=== PATIENT | female | born 1975 | race Caucasian/White ===

== ENCOUNTER → 2017-09-27 16:12 | Outpatient (CLI) | payer OTHER, SELFPAY ==
--- NOTE | 2017-09-27 16:14 | DI.US.S_ITS ---
PROCEDURE: US ABDOMEN LIMITED INDICATIONS: INGUINAL PAIN TECHNIQUE: Real-time focused scanning was performed of the inguinal region, with image documentation. COMPARISON: None. FINDINGS: Imaging over the right inguinal canal was obtained in the supine and upright positions with and without Valsalva. There is a hypoechoic shadowing from previous scar but no new herniation is seen. IMPRESSION: No recurrent inguinal hernia Dictated by: Ashish Gonsalez M.D. on 09/27/2017 at 16:39 Approved by: Ashish Gonsalez M.D. on 09/27/2017 at 16:40
== END ==
PROVIDERS: PCP Nurse Practitioner; Visit Provider Nurse Practitioner
DX: R10.2 Pelvic and perineal pain (principal)
CPT/HCPCS: 76705

== ENCOUNTER → 2018-12-11 07:32 | Outpatient (CLI) | payer OTHER, SELFPAY ==
--- NOTE | 2018-12-11 | DI.RAD.S_ITS ---
PROCEDURE: XR CHEST 2V INDICATIONS: Ventricular premature depolarization TECHNIQUE: 2 views of the chest were acquired. COMPARISON: None. FINDINGS: Surgical changes and devices: None. Lungs and pleura: Lungs are clear. No pleural effusions or pneumothorax. Mediastinum: Mediastinal contours are normal. Heart size is normal. Bones and chest wall: No suspicious bony abnormalities. Soft tissues appear unremarkable. IMPRESSION: Normal for age, source of current cardiac symptoms is not seen. Dictated by: Jimmie Mace M.D. on 12/11/2018 at 9:57 Approved by: Jimmie Mace M.D. on 12/11/2018 at 9:57
[2018-12-11 08:34] LABS: Add Manual Diff / Slide Review NO; Basophils Absolute Auto 0 /uL (0-100); Basophils Percent Auto 0.8 % (0-2); Eosinophils Absolute Auto 100 /uL (0-450); Eosinophils Percent Auto 1.2 % (2-4); Hematocrit 37.8 % (36-46); Hemoglobin 12.7 g/dL (12.0-16.0); Lymphocytes Absolute Auto 1200 /uL (1100-4500); Lymphocytes Percent Auto 22.2 % (25-40); Mean Corpuscular HGB Conc 33.6 % (30-36); Mean Corpuscular Hemoglobin 30.5 PG (26-34); Mean Corpuscular Volume 90.7 fL (80-100); Monocytes Absolute Auto 500 /uL (0-900); Monocytes Percent Auto 8.4 % (3-14); Neutrophils Absolute Auto 3800 /uL (1500-7000); Neutrophils Percent Auto 67.4 % (50-75); Platelet Count 217 X10^3/uL (150-400); Red Blood Cell Count 4.16 X10^6/uL (4.0-5.2); Red Cell Distribution Width 13.6 % (11.6-14.8); White Blood Cell Count 5.6 X10^3/uL (4.5-11.0)
[2018-12-11 08:54] LABS: Alanine Aminotransferase 24 IU/L (9-52); Albumin 4.3 g/dL (3.5-5.0); Albumin Globulin Ratio 1.3 (1.0-2.8); Alkaline Phosphatase 53 U/L (38-126); Aspartate Aminotransferase 31 IU/L (14-36); BUN Creatinine Ratio 23.3 (6-22); Bilirubin Total 0.5 mg/dL (0.2-1.3); Blood Urea Nitrogen 14 mg/dL (7-17); Calcium 9.1 mg/dL (8.4-10.2); Carbon Dioxide 28 mmol/L (22-32); Chloride 102 mmol/L (98-107); Cholesterol 185 mg/dL (140-199); Estimated Glomerular Filt Rate > 60.0 mL/min (>60); Globulin 3.3 g/dL (1.7-4.1); Glucose 91 mg/dL (70-100); HDL Cholesterol 59 mg/dL (40-60); HEMOLYSIS < 15 (0-50); LDL Cholesterol Calculated 109 mg/dL (<100); Potassium 4.6 mmol/L (3.4-5.1); Sodium 139 mmol/L (137-145); Total Protein 7.6 g/dL (6.3-8.2); Triglycerides 86 mg/dL (35-150)
[2018-12-11 09:06] LABS: LDL Cholesterol Direct 116 mg/dL (<100)
[2018-12-11 09:29] LABS: Thyroid Stimulating Hormone 0.84 uIU/mL (0.47-4.68)
== END ==
PROVIDERS: PCP Nurse Practitioner; Visit Provider Nurse Practitioner
DX: Z00.01 Encounter for general adult medical examination with abnormal findings (principal); I49.3 Ventricular premature depolarization; Q82.5 Congenital non-neoplastic nevus; F40.243 Fear of flying
CPT/HCPCS: 36415; 71046; 80053; 80061; 83721; 84443; 85025

== ENCOUNTER → 2021-02-02 09:55 | Outpatient (CLI) | payer OTHER, SELFPAY ==
--- NOTE | 2021-02-02 | DI.US.S_ITS ---
PROCEDURE: US ABDOMEN LIMITED INDICATIONS: RLQ PAIN TECHNIQUE: Real-time focused scanning was performed of the abdomen, with image documentation. COMPARISON: [facility], ABDOMEN LIMITED, 11/27/2009, 15:55. [facility], ABDOMEN LIMITED, 09/27/2017, 16:23. FINDINGS: Scanning is performed at the area of clinical concern involving the right groin. At this site, no findings of hernia can be seen, including with Valsalva maneuver. There is a small ovoid hypoechoic focus that measures 8 x 7 x 3 mm, adjacent to the vascular bundle. IMPRESSION: Negative for hernia. Apparent normal lymph node seen within the region of clinical concern. Dictated by: Francesco Begum M.D. on 02/02/2021 at 9:50 Approved by: Francesco Begum M.D. on 02/02/2021 at 9:52
== END ==
PROVIDERS: PCP Naturopath; Referring Provider Naturopath; Visit Provider Naturopath
DX: R10.31 Right lower quadrant pain (principal)
CPT/HCPCS: 76705

== ENCOUNTER → 2021-04-01 11:24 | Outpatient (CLI) | payer OTHER, SELFPAY ==
--- NOTE | 2021-04-01 | DI.RAD.S_ITS ---
PROCEDURE: XR RIBS LT MIN 3V W CXR1V INDICATIONS: CONTUSION OF UNSPECIFIED FRONTWALL OF THORAX TECHNIQUE: 4 views of the left ribs were acquired, along with a single view chest. COMPARISON: December 11, 2018. FINDINGS: Surgical changes and devices: None. Bones and chest wall: No fractures or dislocations. No suspicious bony lesions. Overlying soft tissues appear unremarkable. Lungs and pleura: The lungs appear hyperexpanded. No pleural effusions or pneumothorax. Lungs appear clear. Mediastinum: Mediastinal contours appear normal. Heart size is normal. IMPRESSION: No significant abnormality. Dictated by: Apolinar Singh M.D. on 04/01/2021 at 12:43 Approved by: Apolinar Singh M.D. on 04/01/2021 at 12:48
== END ==
PROVIDERS: PCP Naturopath; Referring Provider Nurse Practitioner Family; Visit Provider Nurse Practitioner Family
DX: S20.219A Contusion of unspecified front wall of thorax, initial encounter (principal); X58.XXXA Exposure to other specified factors, initial encounter
CPT/HCPCS: 71101

== ENCOUNTER → 2021-04-20 14:12 | Outpatient (CLI) | payer OTHER, SELFPAY ==
--- NOTE | 2021-04-20 | DI.MRI.S_ITS ---
PROCEDURE: MR PELVIS WO CON INDICATIONS: Right lower quadrant pain TECHNIQUE: Noncontrast coronal T1 and STIR, axial T1 and T2 with fat saturation, sagittal T1 and STIR obtained through the pelvis. COMPARISON: [facility], , ABDOMEN LIMITED, 02/02/2021, 10:17. FINDINGS: Image quality: Evaluation slightly limited by motion artifact. Soft tissues: There is a small amount of free fluid in the pelvis which appears within physiologic limits. Uterus and ovaries appear within normal size limits. There is a thin walled cyst in the left ovary measuring up to 2.2 cm consistent with a follicular cyst. The endometrium and junctional zone appear normal in thickness. Visualized bowel loops are normal in caliber. The appendix is not discretely well visualized in the absence of intravenous contrast. However, no definite abnormally distended and thick-walled appendix identified. Visualized muscles demonstrate normal bulk and internal signal. No joint effusions. Bones: Bone marrow of the pelvic ring, sacrum, and proximal femurs demonstrates normal overall signal. No bone contusions or fractures identified. The visualized lower lumbar spine demonstrates mild degenerative disc disease at L4-5 with a small posterior annular fissure. There is associated mild spinal canal narrowing. IMPRESSION: 1. Limited evaluation of the appendix in the absence of intravenous contrast. No definite abnormal appendix identified to suggest acute appendicitis. If there is clinical suspicion for appendicitis, further evaluation is recommended with CT. 2. Small amount of free fluid in the pelvis appears within physiologic limits. 3. Ovaries appear within normal size limits with a probable follicular cyst in the left ovary. No definite morphologic evidence of ovarian torsion but if there is clinical suspicion for torsion further evaluation may be obtained with ultrasound. Dictated by: Sean Steiner M.D. on 04/21/2021 at 1:12 Transcribed by: YOANA on 04/21/2021 at 1:13 Approved by: Sean Steiner M.D. on 04/21/2021 at 1:27
== END ==
PROVIDERS: PCP Naturopath; Referring Provider Naturopath; Visit Provider Naturopath
DX: R10.31 Right lower quadrant pain (principal)
CPT/HCPCS: 72195

== ENCOUNTER 2022-06-15 07:44 | Day surgery (SDC) | payer OTHER, SELFPAY ==
[2022-06-15 07:55] VITALS: BP 102/64; PULSE 67; RESP 18; TEMP 36.4; O2SAT 100; BMI 20.9
[2022-06-15] MEDS: LACTATED RINGERS 1,000 ML 200 ML IV (08:14)
--- NOTE | 2022-06-15 08:41 | PM.HP.1 ---
History of Present Illness History of Present Illness Date Patient Seen: 06/15/22 Time Patient Seen: 08:41 Chief complaint: Screening Colonoscopy Narrative: The patient presents for colorectal screening. They have never had any previous examination for such. No personal or family history of colon cancer. On further history denies any recent gastrointestinal symptoms. No nausea, vomiting, abdominal pain, loss of appetite, unexplained weight loss, change in bowel habits, or blood per rectum. Patient History Surgical History History of cardiac radiofrequency ablation (RFA) Family & Social History Family History Father Age: 78 Heart disease Social History: household members spouse Tobacco & Substance use: Smoking Status Never smoker alcohol intake current alcohol intake frequency 0-2 drinks per day Substance Use Type does not use Meds Home Medications and Allergies Home Medications Medication Instructions Recorded Confirmed Type EPINEPHRINE (#EPI-PEN) 1 mg MR SEE INSTRUCTIONS ##1 02/24/12 Rx peg 3350-electrolytes 236 240 ml PO Q10M #4,000 mL 06/09/22 Rx gram-22.74 gram-6.74 gram-5.86 gram solution (Golytely) magnesium tab PO 3XW 06/15/22 History Allergies Allergy/AdvReac Type Severity Reaction Status Date / Time No Known Drug Allergies Allergy Verified 06/15/22 07:54 Exam Vital Signs (past 8 hours): - 06/15/22 07:55 Temperature 97.5 F L Pulse Rate 67 Respiratory Rate 18 Blood Pressure 102/64 Pulse Oximetry 100 Oxygen Delivery Method Room Air Oxygen Delivery Method Room Air Narrative Exam Narrative: General adult woman alert oriented no acute distress Assessment & Plan Assessment & Plan narrative: The patient requires colorectal screening and colonoscopy is recommended. Technical details were discussed. Risks, benefits, alternatives explained. Risks including but not limited to myocardial infarction, aspiration, bleeding, pain, missed lesion, incomplete examination, need for further radiographic studies, colonic perforation, and need for major abdominal surgery were discussed. All questions were answered to their satisfaction, and they are in agreement with this plan. Time Spent With Patient Critical Care time: I spent a total of [] minutes of critical care time on this patient's care today; this time is exclusive of procedural time.
--- NOTE | 2022-06-15 08:44 | PM.OP.COLON ---
Operative Date/Time/Diagnoses Date of procedure: 06/15/22 Time of procedure: 08:44 Pre-op diagnosis: Colorectal screening Post-op diagnosis: same Procedure & Clinicians Study performed: Colonoscopy Same procedure as scheduled: Yes Indications: Colorectal screening Surgeon: Johnnie Velasco Procedure Notes Procedure in detail: The history and physical was performed/updated and the patient is ASA class is *. The procedure was discussed in detail with the patient. Potential risks complications including infection, bleeding, missed diagnosis, perforation, need for surgery, and were explained. Their questions were answered and informed consent was obtained. Patient was brought to the procedure room and placed standard monitoring equipment. The patient's vital signs were monitored continuously throughout the entire procedure. Prior to starting time-out was performed. The patient was placed in the left lateral recumbent position. Procedural sedation was administered by anesthesia. Examination began with a thorough inspection of the perianal area there was no evidence of fissures, fistulae, external hemorrhoids or cutaneous malignancy. The colonoscopy scope was then placed into the anal canal and was advanced to the cecum, which was identified by the ileocecal valve, the appendiceal orifice and the confluence of the taenia. The scope was then slowly withdrawn examining colon thoroughly in all directions, irrigating it of any residual stool. Colon free of masses, polyps, and inflammation. Normal healthy colon The patient tolerated the procedure well. They will be discharged once criteria are met. The prep was of good/excellent quality. The withdrawl time was 6 minutes. Specimen(s): none sent Impression: Normal colonoscopy Post-procedure Recommendations: High fiber diet Disposition: same day surgery
[2022-06-15 09:07] VITALS: BP 89/45; PULSE 62; RESP 11; TEMP 36.1; O2SAT 97
[2022-06-15 09:10] VITALS: BP 76/47; PULSE 78; RESP 12; O2SAT 95
[2022-06-15 09:13] VITALS: BP 95/53; PULSE 68; RESP 20; O2SAT 97
[2022-06-15 09:18] VITALS: BP 92/61; PULSE 67; RESP 20; TEMP 36.1; O2SAT 99
[2022-06-15 09:19] VITALS: BP 98/65; PULSE 61; RESP 20; O2SAT 100
--- NOTE | 2022-06-15 09:37 | SUR.PHASEII ---
0935: Pt A&Ox4, denies any distress, abdomen soft. Discharge instructions reviewed with patient with time allowed for questions. Pt left unit with all personal belongings and written instructions.
== END 2022-06-15 09:38 | disposition home or self-care (01) ==
PROVIDERS: PCP Naturopath; Referring Provider Surgery; Visit Provider Surgery
PROC: 0DJD8ZZ Inspection of Lower Intestinal Tract, Via Natural or Artificial Opening Endoscopic (ICD-10-PCS; CPT 45378; principal; 2022-06-15 08:45)
DX: Z12.11 Encounter for screening for malignant neoplasm of colon (principal)
CPT/HCPCS: 45378; J2704; J3010

== ENCOUNTER → 2022-09-09 14:45 | Outpatient (CLI) | payer OTHER, SELFPAY ==
--- NOTE | 2022-09-09 | DI.ECHO.S_ITS ---
[facility]---------+ [facility] +---------+ : : [address] : [place] : : : : [id number] : : : : Phone: [phone]---------+ Echocardiogram Report + + :Name: IVAN IBARRA Study Date: 09/09/2022 Height: 72 in : :[facility] ReadingLocation: Weight: 155 lb : : Gender: Female BSA: 1.9 m2 : :: 1975 Age: 47 yrs BP: 112/70 mmHg: :Reason For Study: RULE OUT AORTIC DILATION/DISSECTION AND : :MITRAL VALVE PROLAPSE HR: 63 : :Ordering Physician: WALTER, : :HOWIE Performed By: BENJAMIN ADDISON : :Referring: HOWIE WATSON : + + Interpretation Summary 1) Normal left ventricular thickness, size, wall motion, and systolic function (EF 60-65%). 2) Normal right ventricular size and function. 3) No significant valvular abnormalities. 4) No prior Echo available for comparison. Procedure: A two-dimensional transthoracic echocardiogram with color flow and Doppler was performed. The study quality was technically adequate. There is no prior echocardiogram noted for this patient. The patient was in normal sinus rhythm during the exam. Left Ventricle: The left ventricle is normal in size and wall thickness. Left ventricular systolic function is normal. The ejection fraction is estimated to be 60-65%. Left ventricular wall motion is normal. Diastolic parameters suggest probable normal left ventricular diastolic function and normal filling pressures. Right Ventricle: The right ventricle is normal in size and function. Atria: Both atria are normal in size. There is no Doppler evidence for an interatrial shunt. Mitral Valve: The mitral valve is normal in structure and function. There is trace mitral regurgitation. Aortic Valve: The aortic valve is trileaflet. The aortic valve opens well. There is no aortic valve stenosis. No aortic regurgitation is present. Tricuspid Valve: The tricuspid valve is normal in structure and function. No tricuspid regurgitation. Pulmonary artery pressures cannot be estimated because of the lack of a measurable TR jet velocity. Pulmonic Valve: The pulmonic valve leaflets are thin and pliable; valve motion is normal. There is no pulmonic valvular regurgitation. Great Vessels: The aortic root is normal size. The ascending aorta is normal in size. The IVC is of normal diameter and collapses greater than 50% with a sniff. This suggests a low right atrial pressure of 3 mm Hg. Pericardium/ Pleura There is no pericardial effusion. There is no pleural effusion. MMode/2D Measurements & Calculations LVIDd: 4.7 cm LVOT diam: 2.0 cm LVIDs: 3.2 cm Ao root diam: 3.3 cm FS: 31.9 % asc Aorta Diam: 2.9 cm IVSd: 0.60 cm LVPWd: 0.60 cm LV vega. diameter/BSA (cm/m^2): 2.5 LV sys. diameter/BSA (cm/m^2): 1.7 LA A2 area: 15.8 cm2 RA long axis: 4.3 cm LA A4 area: 12.7 cm2 LA length (vol): 5.3 cm LA vol: 32.1 ml LA vol index: 16.8 ml/m2 LVLs ap4: 5.9 cm LVLd ap2: 8.6 cm LVLs ap2: 7.0 cm TAPSE_phl: 2.0 cm Doppler Measurements & Calculations Ao V2 max: 145.0 cm/sec LVOT Max Marc: 122.0 cm/sec Ao V2 mean: 112.0 cm/sec LV V1 max P.0 mmHg Ao max P.4 mmHg LV V1 VTI: 28.6 cm Ao mean P.0 mmHg MICKEY(I,D): 2.9 cm2 Ao V2 VTI: 31.0 cm MICKEY(V,D): 2.6 cm2 sev ratio: 0.92 MICKEY indexed to BSA (cm^2/m^2): 1.5 MV E max marc: 80.1 cm/sec PA V2 max: 95.9 cm/sec MV A max marc: 48.4 cm/sec PA V2 mean: 71.3 cm/sec MV E/A: 1.7 PA mean P.0 mmHg Med Peak E' Marc: 11.2 cm/sec PA pr(Accel): 6.1 mmHg E/E' med: 7.2 Lat Peak E' Marc: 15.4 cm/sec E/E' lat: 5.2 E/e' average: 6.2 MV dec time: 0.21 sec SV(LVOT): 89.8 ml AV VR_phl: 0.84 MICKEY(VTI)/BSA_phl: 1.5 MV P1/2t-pr_phl: 60.0 msec Reading Physician:04:28 PM
== END ==
PROVIDERS: PCP Naturopath; Referring Provider Naturopath; Visit Provider Naturopath
DX: M67.90 Unspecified disorder of synovium and tendon, unspecified site (principal)
CPT/HCPCS: 93306

== ENCOUNTER → 2022-11-23 17:03 | Outpatient (CLI) | payer OTHER, SELFPAY ==
[2022-11-23 18:11] LABS: Add Manual Diff / Slide Review NO; Basophils Absolute Auto 0 /uL (0-100); Basophils Percent Auto 0.4 % (0-2); Eosinophils Absolute Auto 0 /uL (0-450); Eosinophils Percent Auto 0.8 % (2-4); Hematocrit 37.6 % (36-46); Hemoglobin 12.8 g/dL (12.0-16.0); Lymphocytes Absolute Auto 1300 /uL (1100-4500); Lymphocytes Percent Auto 21.8 % (25-40); Mean Corpuscular Hemoglobin 29.9 PG (26-34); Mean Corpuscular Volume 87.9 fL (80-100); Monocytes Absolute Auto 700 /uL (0-900); Monocytes Percent Auto 11.6 % (3-14); Neutrophils Absolute Auto 4000 /uL (1500-7000); Neutrophils Percent Auto 65.4 % (50-75); Platelet Count 261 X10^3/uL (150-400); Red Blood Cell Count 4.28 X10^6/uL (4.0-5.2); Red Cell Distribution Width 13.8 % (11.6-14.8); White Blood Cell Count 6.1 X10^3/uL (4.5-11.0)
[2022-11-23 18:38] LABS: Alanine Aminotransferase 45 IU/L (<35); Albumin 4.3 g/dL (3.5-5.0); Albumin Globulin Ratio 1.2 (1.0-2.8); Alkaline Phosphatase 51 U/L (38-126); Aspartate Aminotransferase 38 IU/L (14-36); Bilirubin Total 0.4 mg/dL (0.2-1.3); Blood Urea Nitrogen 14 mg/dL (7-17); C-Reactive Protein Quant < 0.5 mg/dL (<1.0); Calcium 8.7 mg/dL (8.4-10.2); Carbon Dioxide 29 mmol/L (22-32); Chloride 101 mmol/L (98-107); Estimated Glomerular Filt Rate > 60 mL/min (>60); Globulin 3.6 g/dL (1.7-4.1); Glucose 98 mg/dL (70-100); HEMOLYSIS < 15 (0-50); Sodium 136 mmol/L (137-145); Total Protein 7.9 g/dL (6.3-8.2); Uric Acid 3.2 mg/dL (2.5-6.2)
[2022-11-23 18:41] LABS: Rheumatoid Factor < 8.6 IU/mL (<12.0)
[2022-11-23 19:02] LABS: Vitamin D 25 Hydroxy (D3) 44.7 ng/mL (30.0-100.0)
[2022-11-23 19:16] LABS: Thyroid Stimulating Hormone 0.596 uIU/mL (0.47-4.68)
[2022-11-23 19:47] LABS: Follicle Stimulating Hormone 4.01 mIU/mL
[2022-11-23 20:43] LABS: Erythrocyte Sedimentation Rate 17 MM/HR (0-20)
[2022-11-25 17:36] LABS: CCP Antibodies IgG/IgA 4 units (0-19)
[2022-11-27 15:44] LABS: ANA Screen, IFA Negative (.)
== END ==
PROVIDERS: PCP Naturopath; Referring Provider Naturopath; Visit Provider Naturopath
DX: M67.90 Unspecified disorder of synovium and tendon, unspecified site (principal)
CPT/HCPCS: 36415; 80053; 82306; 82533; 83001; 84443; 84550; 85025; 85651; 86038; 86140; 86200; 86430

== ENCOUNTER → 2023-05-27 08:27 | Outpatient (CLI) | payer OTHER, SELFPAY ==
[2023-05-28 10:05] LABS: Cholesterol 188 mg/dL (140-199); Glucose 103 mg/dL (70-100); HDL Cholesterol 62 mg/dL (40-60); LDL Cholesterol Calculated 111 mg/dL (<100); Triglycerides 76 mg/dL (35-150)
== END ==
LOC: LAB 08:29
PROVIDERS: PCP Naturopath; Referring Provider Naturopath; Visit Provider Naturopath
DX: Z13.220 Encounter for screening for lipoid disorders (principal); Z13.1 Encounter for screening for diabetes mellitus
CPT/HCPCS: 36415; 80061; 82947

== ENCOUNTER → 2023-06-08 15:25 | Outpatient (CLI) | payer OTHER, SELFPAY ==
[2023-06-08 18:24] LABS: BUN Creatinine Ratio 26.1 (6-22); Blood Urea Nitrogen 18 mg/dL (7-17); Calcium 9.5 mg/dL (8.4-10.2); Carbon Dioxide 31 mmol/L (22-32); Chloride 100 mmol/L (98-107); Estimated Glomerular Filt Rate > 60 mL/min (>60); Glucose 74 mg/dL (70-100); HEMOLYSIS < 15 (0-50); Potassium 4.3 mmol/L (3.4-5.1); Sodium 137 mmol/L (137-145)
[2023-06-08 19:40] LABS: Thyroid Stimulating Hormone 0.604 uIU/mL (0.47-4.68)
== END ==
LOC: LAB 15:26
PROVIDERS: PCP Naturopath; Referring Provider Internal Medicine Cardiovascular Disease; Visit Provider Internal Medicine Cardiovascular Disease
DX: I47.10 Supraventricular tachycardia, unspecified (principal); I49.3 Ventricular premature depolarization
CPT/HCPCS: 36415; 80048; 84443

== ENCOUNTER → 2023-07-13 11:54 | Outpatient (CLI) | payer OTHER, SELFPAY ==
[2023-07-13 12:28] LABS: Add Manual Diff / Slide Review NO; Basophils Absolute Auto 0 /uL (0-100); Basophils Percent Auto 0.5 % (0-2); Eosinophils Absolute Auto 0 /uL (0-450); Eosinophils Percent Auto 0.4 % (2-4); Hematocrit 39.4 % (36-46); Hemoglobin 13.1 g/dL (12.0-16.0); Lymphocytes Absolute Auto 1000 /uL (1100-4500); Lymphocytes Percent Auto 14.6 % (25-40); Mean Corpuscular HGB Conc 33.2 % (30-36); Mean Corpuscular Hemoglobin 30.7 PG (26-34); Mean Corpuscular Volume 92.4 fL (80-100); Monocytes Absolute Auto 600 /uL (0-900); Monocytes Percent Auto 9.4 % (3-14); Neutrophils Absolute Auto 5200 /uL (1500-7000); Neutrophils Percent Auto 75.1 % (50-75); Platelet Count 242 X10^3/uL (150-400); Red Blood Cell Count 4.26 X10^6/uL (4.0-5.2); Red Cell Distribution Width 14.1 % (11.6-14.8); White Blood Cell Count 6.9 X10^3/uL (4.5-11.0)
[2023-07-13 12:41] LABS: Alanine Aminotransferase 21 IU/L (<35); Albumin 4.5 g/dL (3.5-5.0); Albumin Globulin Ratio 1.3 (1.0-2.8); Alkaline Phosphatase 49 U/L (38-126); Aspartate Aminotransferase 30 IU/L (14-36); Bilirubin Total 0.8 mg/dL (0.2-1.3); Bilirubin Unconjugated 0.6 mg/dL (0.0-1.1); Globulin 3.6 g/dL (1.7-4.1); HEMOLYSIS < 15 (0-50); Total Protein 8.1 g/dL (6.3-8.2)
== END ==
PROVIDERS: PCP Naturopath; Referring Provider Naturopath; Visit Provider Naturopath
DX: D72.819 Decreased white blood cell count, unspecified (principal); R74.01 Elevation of levels of liver transaminase levels
CPT/HCPCS: 36415; 80076; 85025

== ENCOUNTER → 2024-08-02 09:06 | Outpatient (CLI) | payer OTHER, SELFPAY ==
--- NOTE | 2024-08-02 09:10 | DI.RAD.S_ITS ---
PROCEDURE: XR FOOT LT MIN 3V INDICATIONS: pain TECHNIQUE: 3 views of the foot were acquired. COMPARISON: None. FINDINGS: Bones: No fractures or dislocations. No suspicious bony lesions. Soft tissues: No tibiotalar joint effusion. Achilles tendon appears normal. IMPRESSION: No acute bony abnormality. Dictated by: Aiden Mcgrath M.D. on 08/02/2024 at 16:41 Approved by: Aiden Mcgrath M.D. on 08/02/2024 at 16:42
--- NOTE | 2024-08-02 09:10 | DI.RAD.S_ITS ---
PROCEDURE: XR ANKLE LT MIN 3V INDICATIONS: pain TECHNIQUE: 3 views of the ankle were acquired. COMPARISON: None. FINDINGS: Bones: No fractures or dislocations. Ankle mortise is normally aligned. No suspicious bony lesions. Soft tissues: No tibiotalar joint effusion. Achilles tendon appears normal. IMPRESSION: No acute ankle fracture or dislocation. Dictated by: Curly Do M.D. on 08/02/2024 at 9:36 Approved by: Curly Do M.D. on 08/02/2024 at 9:37
== END ==
LOC: RAD 09:09
PROVIDERS: PCP Naturopath; Referring Provider Physician Assistant; Visit Provider Physician Assistant
DX: M25.572 Pain in left ankle and joints of left foot (principal); M79.672 Pain in left foot
CPT/HCPCS: 73610; 73630

== ENCOUNTER → 2024-09-08 14:47 | Outpatient (CLI) | payer OTHER, SELFPAY ==
--- NOTE | 2024-09-08 14:48 | DI.MRI.S_ITS ---
PROCEDURE: MR ANKLE LT WO CON INDICATIONS: Deep ankle joint pain TECHNIQUE: Noncontrast sagittal T1 spin echo and T2 fast spin echo with fat saturation, axial proton density fast spin echo and T2 fast spin echo with fat saturation, coronal T1 spin echo and T2 fast spin echo with fat saturation through the ankle/hindfoot. COMPARISON: [facility], CR, XR ANKLE LT MIN 3V, 08/02/2024, 9:05. FINDINGS: Image quality: Excellent Tendons: Mild tenosynovitis of the posterior tibialis. The flexor digitorum longus, and the flexor hallucis longus are unremarkable. The extensor tendons are unremarkable. Longitudinal split tear of the peroneal brevis, immediately below the lateral malleolus. The peroneal longus is unremarkable. The distal Achilles tendon is unremarkable. Ligaments: The anterior and posterior tibiofibular ligaments are intact. Mild sprain of the anterior talofibular ligament. The posterior talofibular ligament is intact. The calcaneofibular ligament is unremarkable. Mild sprain of the deep portion of the deltoid ligament. Sinus tarsi: No fibrosis Plantar fascia: Unremarkable Muscles: Normal in signal Bones: Moderate marrow edema in the cuboid, nonspecific and may represent marrow contusion versus degenerative. Small tibiotalar effusion. Moderate amount of fluid within the posterior subtalar joint. IMPRESSION: 1. Longitudinal split tear of the peroneal brevis. 2. Mild sprain of the medial and lateral ankle ligament, without full-thickness tear. 3. Moderate marrow edema of the cuboid, nonspecific and may be degenerative versus marrow contusion. Dictated by: Megan David M.D. on 09/10/2024 at 10:46 Approved by: Megan David M.D. on 09/10/2024 at 10:57
== END ==
LOC: MRI 14:48
PROVIDERS: PCP Naturopath; Referring Provider Internal Medicine; Visit Provider Internal Medicine
DX: S96.812A Strain of other specified muscles and tendons at ankle and foot level, left foot, initial encounter (principal); S93.422A Sprain of deltoid ligament of left ankle, initial encounter; S93.492A Sprain of other ligament of left ankle, initial encounter; M25.572 Pain in left ankle and joints of left foot; R26.9 Unspecified abnormalities of gait and mobility; X50.3XXA Overexertion from repetitive movements, initial encounter
CPT/HCPCS: 73721